=== PATIENT | male | born 1960 | race Caucasian/White ===

== ENCOUNTER 2017-05-08 13:26 | Emergency (ER) | payer BC, OTHER, SELFPAY ==
--- NOTE | 2017-05-08 15:02 | REP ---
Clinical: Headache and hypertension. Comparison: None . 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 The ventricles, sulci, and cisterns are otherwise normal in position and appearance. Peck-white differentiation is maintained. No acute intracranial hemorrhage, mass/mass effect, pathology or trauma/injury. No evidence for acute infarction. No subdural collection. Calvarium is intact. Paranasal sinuses and mastoid air cells are clear. Impression: 1. 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 2. No evidence for acute intracranial pathology or trauma/injury. Signed by Justin Weston MD 05/08/2017 02:54 P
[2017-05-08 15:45] LABS: MEAN CORPUSCULAR HEMOGLOBIN 32.8 pg (27.0-33.0); MEAN CORPUSCULAR HGB CONC 36.1 g/dl (32.0-36.5); RED CELL DISTRIBUTION WIDTH 13.9 % (11.5-14.5); WHITE BLOOD COUNT 9.5 K/mm3 (4.0-10.0)
[2017-05-08 16:14] LABS: METHADONE URINE NEGATIVE (NEGATIVE)
[2017-05-08 16:22] LABS: ALBUMIN/GLOBULIN RATIO 1.08 (1.00-1.93); ALKALINE PHOSPHATASE 123 U/L (45-117); ALT/SGPT 77 U/L (12-78); ANION GAP 8 MEQ/L (8-16); AST/SGOT 49 U/L (15-37); BILIRUBIN,DIRECT 0.3 MG/DL (0.0-0.2); BILIRUBIN,TOTAL 1.1 MG/DL (0.2-1.0); BLOOD UREA NITROGEN 12 MG/DL (7-18); CALCIUM LEVEL 8.7 MG/DL (8.5-10.1); CARBON DIOXIDE LEVEL 25 MEQ/L (21-32); CHLORIDE LEVEL 104 MEQ/L (98-107); CREATININE FOR GFR 1.05 MG/DL (0.70-1.30); GLOMERULAR FILTRATION RATE > 60.0 (>56); GLUCOSE, FASTING 186 MG/DL (70-105); POTASSIUM SERUM 3.9 MEQ/L (3.5-5.1); SODIUM LEVEL 137 MEQ/L (136-145); TOTAL PROTEIN 7.7 GM/DL (6.4-8.2)
[2017-05-08] MEDS ORDERED: FIORICET TAB PO ONE (16:30)
[2017-05-08] MEDS ORDERED: KETOROLAC 30 MG/ML VIAL (J1885) IV ONE (16:30)
[2017-05-08] MEDS ORDERED: CLON-412 PO (18:19)
[2017-05-08] MEDS ORDERED: METF500T13 PO (18:19)
[2017-05-08 18:30] VITALS: BP 192/106
[2017-05-08] MEDS ORDERED: cloNIDine 0.1 MG TAB PO ONE (18:30)
[2017-05-08 18:37] VITALS: BP 192/106
--- NOTE | 2017-05-09 07:00 | ED PDOC ---
Post-Departure Follow-Up certified letter sent to patient Amber Ramirez MD May 09, 2017 07:00
== END 2017-05-08 18:38 | disposition home or self-care (01) ==
LOC: M ED 13:26 → EDBD 13:26 → M ED 18:38
DX: I10 Essential (primary) hypertension (principal); R51 Headache; E11.9 Type 2 diabetes mellitus without complications; F33.8 Other recurrent depressive disorders; Z79.84 Long term (current) use of oral hypoglycemic drugs
CPT/HCPCS: 70450; 80048; 80076; 80307; 84443; 85027; 96374; 99285; G0480; J1885